=== PATIENT | male | born 1960 | race Caucasian/White ===

== ENCOUNTER → 2019-01-01 | Outpatient (CLI) | payer MEDICARE, MEDICAID ==
[~2019-01-01] MED LIST: BUPR-93 PO; BUPR100T4 PO; GABA-533 PO; HALOD50I IM; HYDR50CA10 PO; INSLAN SQ; IOVERSOL 350 MG/ML 100 ML VIAL ONE; METF-444 PO
== END | disposition home or self-care (01) ==
LOC: RADMN 09:08
PROVIDERS: ATTEND Internal Medicine
DX: J43.9 Emphysema, unspecified (principal); R91.8 Other nonspecific abnormal finding of lung field
CPT/HCPCS: 71260; Q9967

== ENCOUNTER 2019-02-01 08:07 | Day surgery (SDC) | payer MEDICARE, OTHER ==
[~2019-02-01] VITALS: Ht 160 cm; Wt 93.6 kg
[~2019-02-01 08:07] MED LIST changes: -IOVERSOL 350 MG/ML 100 ML VIAL ONE; +SODIUM CHLORIDE 0.9% 1,000 ML IV ONE
[2019-02-01] MEDS ORDERED: SODIUM CHLORIDE 0.9% 1,000 ML IV ONE ×2 (08:15→08:19)
[2019-02-01] MEDS ORDERED: DIVA500T52 PO (08:59)
[2019-02-01] MEDS ORDERED: LISI-660 PO (08:59)
[2019-02-01] MEDS ORDERED: SITA50 PO (08:59)
[2019-02-01] MEDS ORDERED: OMEP20 PO (08:59)
[2019-02-01] MEDS ORDERED: INSU100V SQ (08:59)
[2019-02-01] MEDS ORDERED: GLIM2 PO (08:59)
[2019-02-01] MEDS ORDERED: ALBU8HFA PO (08:59)
[2019-02-01] MEDS ORDERED: SIMV-260 PO (08:59)
== END 2019-02-01 09:25 | disposition home or self-care (01) ==
LOC: SURGERY 08:07 → EDSTATUS 10:00
PROVIDERS: ATTEND Radiology Body Imaging
DX: C31.1 Malignant neoplasm of ethmoidal sinus (principal); Z53.8 Procedure and treatment not carried out for other reasons; C78.01 Secondary malignant neoplasm of right lung; F31.9 Bipolar disorder, unspecified; F20.9 Schizophrenia, unspecified; E78.00 Pure hypercholesterolemia, unspecified; J44.9 Chronic obstructive pulmonary disease, unspecified; F17.210 Nicotine dependence, cigarettes, uncomplicated; Z98.890 Other specified postprocedural states
CPT/HCPCS: J7030